=== PATIENT | male | born 1990 | race Caucasian/White ===

== ENCOUNTER 2018-11-08 21:35 | Emergency (ER) | payer SELFPAY ==
[2018-11-08] MEDS ORDERED: Nitroglycerin 0.4 MG Tab.SL SL PRN (22:08)
[2018-11-08] MEDS ORDERED: Sodium Chloride 0.9% 10 ML Syringe FLUSH PRN (22:08)
[2018-11-08] MEDS ORDERED: Sodium Chloride 0.9% 1,000 ML IV ONE (22:08)
[2018-11-08] MEDS ORDERED: Aspirin 81 MG Tab.Chew PO ONE (22:08)
[2018-11-08] MEDS ORDERED: Sodium Chloride 0.9% 2.5 ML Syringe FLUSH PRN (22:08)
--- NOTE | 2018-11-08 22:09 | EDM.PDOC ---
ED HPI GENERAL MEDICAL PROBLEM - General Chief Complaint: Cardiovascular Problem Stated Complaint: DIZZY Time Seen by Provider: 11/08/18 21:59 - History of Present Illness INITIAL COMMENTS - FREE TEXT/NARRATIVE: HISTORY AND PHYSICAL: History of present illness: The patient is a 28-year-old male with no stated cardiac or pulmonary history and no significant family history who presents with left-sided chest pain that does not radiate and he currently rates it a 5/10. He said he slept fine last evening and had a normal day yesterday and woke up and was doing his normal activities when it started about 9:00 this morning. He said initially he was lightheaded like he might pass out but he did not pass out and then started having the chest discomfort which has waxed and waned in intensity all day. He has not had shortness of breath fevers or chills no nausea or vomiting and no back pain or leg pain/swelling. He did not take any medications today for the pain. He says that the lightheadedness has waxed and waned as well but he does not have any focal weakness and he absolutely did not pass out and has no head neck or back pain. The patient has no significant family history and his social history is positive for a smoker of one pack a day as well as social drinking on the weekends but no drug use. He says that he has had an EKG in the past but was told that it was normal. He has had no diaphoresis with this discomfort and again he says that the symptoms are waxing and waning all day but they have never been gone completely. Patient does admit he drinks a lot of caffeinated products Review of systems: As per history of present illness and below otherwise all systems reviewed and negative. Past medical history: As per history of present illness and as reviewed below otherwise noncontributory. Surgical history: As per history of present illness and as reviewed below otherwise noncontributory. Social history: No reported history of drug or alcohol abuse. Family history: As per history of present illness and as reviewed below otherwise noncontributory. Physical exam: General: Well-developed well-nourished man who is nontoxic and vital signs were noted by me. He is speaking clearly and easily in the ED without any distress or breathlessness HEENT: Atraumatic, normocephalic, pupils reactive, negative for conjunctival pallor or scleral icterus, mucous membranes moist, throat clear, neck supple, nontender, trachea midline. Lungs: Clear to auscultation, breath sounds equal bilaterally, chest nontender. No wheezing stridor or work of breathing Heart: S1S2, regular rate and rhythm no overt murmurs, negative for clicks, rubs , or JVD. Abdomen: Soft, nondistended, nontender. Negative for masses or hepatosplenomegaly. NABS Pelvis: Stable nontender. Genitourinary: Deferred. Rectal: Deferred. Extremities: Atraumatic, negative for cords or calf pain. Neurovascular unremarkable. No pedal edema or leg asymmetry Neuro: Awake, alert, oriented. Cranial nerves II through XII unremarkable. Cerebellum unremarkable. Motor and sensory unremarkable throughout. Exam nonfocal. Skin: No diaphoresis normal turgor no evidence of any overt rashes or lesions Diagnostics: EKG 2, chest x-ray, CBC CMP INR troponin Therapeutics: IV O2 monitor aspirin subungual nitroglycerin IV fluids Nitropaste 2206: After I was given the EKG I immediately contacted Dr. Koch, the on- call server security administrator at [facility] in [place], due to the abnormality of it including a bundle branch block. In light of the patient's age his presenting symptoms and chest pain and the abnormality I wanted him to look at it to help determine if this needed to come emergently to [facility]. The patient does not have records here 2214: Dr Koch as reviewed the EKG and feels it is a right bundle/ bifascicular block and he does not feel like he can read more into it than that and does not feel that it needs to be called as an acute STEMI. He said that it is difficult to make sure much interpretation of it with these blocks but he does not again feel that it needs to be emergently sent to their institution as a STEMI. He said that the patient should be ruled out with enzymes and if he continues to have pain or positive troponin that we can send him to [place]. 2221: Nursing went in to give the sublingual nitroglycerin the patient is now saying that he has having no chest pain or pressure and that it does come and go in intensity. When I saw him it was a 5/10 and he says that it is absolutely not present at all now. We will place Nitropaste 2330: All testing results were discussed with the patient and he was advised for observation admission which he is refusing. He is aware of my concerns and accepts them. We will remove the Nitropaste and I will put his name on our cardiology expedited follow-up list for his abnormal EKG. He says he'll return if anything changes but again he is aware of my concerns and the need to completely evaluate this here in the hospital Impression: Chest pain with lightheadedness; abnormal EKG with bundle branch block Definitive disposition and diagnosis as appropriate pending reevaluation and review of above. Left Chest Pain Score (Numeric/FACES): 5 - Related Data Allergies Allergy/AdvReac Type Severity Reaction Status Date / Time No Known Allergies Allergy Verified 11/08/18 22:06 Home Meds: Home Meds Penicillin V Potassium 250 mg PO ASDIRECTED 11/08/18 [History] ED ROS GENERAL - Review of Systems Review Of Systems: ROS reveals no pertinent complaints other than HPI. ED EXAM, GENERAL - Physical Exam Exam: See Below (See dictation) Course - Vital Signs Last Recorded V/S: Last Vital Signs Temp 37.1 C 11/08/18 22:18 Pulse 71 11/08/18 22:18 Resp 12 11/08/18 22:18 BP 117/83 11/08/18 22:18 Pulse Ox 97 11/08/18 22:18 - Orders/Labs/Meds Orders: Active Orders 24 hr Category Date Time Status Cardiac Monitoring [RC] . DIRECTED Care 11/08/18 22:06 Active EKG Documentation Completion [RC] STAT Care 11/08/18 22:06 Active Oxygen Therapy, ED [RC] ASDIRECTED Care 11/08/18 22:06 Active Pulse Oximetry [RC] ASDIRECTED Care 11/08/18 22:06 Active Nitroglycerin [Nitrostat] Med 11/08/18 22:08 Active 0.4 mg SL Q5M PRN Sodium Chloride 0.9% [Saline Flush] Med 11/08/18 22:08 Active 10 ml FLUSH ASDIRECTED PRN Sodium Chloride 0.9% [Saline Flush] Med 11/08/18 22:08 Active 2.5 ml FLUSH ASDIRECTED PRN Saline Lock Insert [OM.PC] Stat Oth 11/08/18 22:06 Ordered Medication Orders Nitroglycerin (Nitrostat) 0.4 mg SL Q5M PRN PRN Reason: Chest Pain Sodium Chloride (Saline Flush) 10 ml FLUSH ASDIRECTED PRN PRN Reason: Keep Vein Open Last Admin: 11/08/18 22:23 Dose: 10 ml Sodium Chloride (Saline Flush) 2.5 ml FLUSH ASDIRECTED PRN PRN Reason: Keep Vein Open Last Admin: 11/08/18 22:23 Dose: 2.5 ml Labs: Laboratory Tests 11/08/18 11/08/18 11/08/18 Range/Units 22:10 22:10 22:10 WBC 5.44 (4.0-11.0) K/uL RBC 5.24 (4.50-5.90) M/uL Hgb 16.4 (13.0-17.0) g/dL Hct 46.2 (38.0-50.0) % MCV 88.2 (80.0-98.0) fL MCH 31.3 (27.0-32.0) pg MCHC 35.5 (31.0-37.0) g/dL RDW Std Deviation 43.3 (28.0-62.0) fl RDW Coeff of Leticia 14 (11.0-15.0) % Plt Count 241 (150-400) K/uL MPV 9.70 (7.40-12.00) fL Neut % (Auto) 53.6 (48.0-80.0) % Lymph % (Auto) 35.7 (16.0-40.0) % Osborne % (Auto) 9.2 (0.0-15.0) % Eos % (Auto) 1.3 (0.0-7.0) % Baso % (Auto) 0.2 (0.0-1.5) % Neut # (Auto) 2.9 (1.4-5.7) K/uL Lymph # (Auto) 1.9 (0.6-2.4) K/uL Osborne # (Auto) 0.5 (0.0-0.8) K/uL Eos # (Auto) 0.1 (0.0-0.7) K/uL Baso # (Auto) 0.0 (0.0-0.1) K/uL Nucleated RBC % 0.0 /100WBC Nucleated RBCs # 0 K/uL INR 0.98 Sodium 137 (136-148) mmol/L Potassium 3.3 L (3.5-5.1) mmol/L Chloride 99 (98-107) mmol/L Carbon Dioxide 28.0 (21.0-32.0) mmol/L BUN 12 (7.0-18.0) mg/dL Creatinine 1.0 (0.8-1.3) mg/dL Est Cr Clr Drug Dosing 120.71 mL/min Estimated GFR (MDRD) > 60.0 ml/min Glucose 137 H (74-106) mg/dL Calcium 8.6 (8.5-10.1) mg/dL Total Bilirubin 0.7 (0.2-1.0) mg/dL AST 25 (15-37) IU/L ALT 70 H (14-63) IU/L Alkaline Phosphatase 58 (46-116) U/L Troponin I < 0.050 (0.000-0.056) ng/mL Total Protein 7.3 (6.4-8.2) g/dL Albumin 4.2 (3.4-5.0) g/dL Globulin 3.1 (2.6-4.0) g/dL Albumin/Globulin Ratio 1.4 (0.9-1.6) Meds: Medications Generic Name Dose Route Start Last Admin Trade Name Freq PRN Reason Stop Dose Admin Nitroglycerin 0.4 mg 11/08/18 22:08 Nitrostat SL Q5M PRN Chest Pain Sodium Chloride 10 ml 11/08/18 22:08 11/08/18 22:23 Saline Flush FLUSH 10 ml ASDIRECTED PRN Administration Keep Vein Open Sodium Chloride 2.5 ml 11/08/18 22:08 11/08/18 22:23 Saline Flush FLUSH 2.5 ml ASDIRECTED PRN Administration Keep Vein Open Discontinued Medications Generic Name Dose Route Start Last Admin Trade Name Freq PRN Reason Stop Dose Admin Aspirin 324 mg 11/08/18 22:08 11/08/18 22:22 Aspirin PO 11/08/18 22:09 324 mg ONETIME ONE Administration Sodium Chloride 1,000 mls @ 999 mls/hr 11/08/18 22:08 11/08/18 22:21 Normal Saline IV 11/08/18 23:08 999 mls/hr STAT ONE Administration Nitroglycerin 0.5 gm 11/08/18 22:22 11/08/18 22:25 Nitro-Bid 2% TOP 11/08/18 22:23 0.5 gm ONETIME ONE Administration Departure - Departure Time of Disposition: 23:34 Disposition: Home, Self-Care 01 Reason for Transfer *Q: Primary PCI Indicated Condition: Good Clinical Impression: Abnormal EKG Chest pain Qualifiers: Chest pain type: unspecified Qualified Code(s): R07.9 - Chest pain, unspecified Referrals: PCP,None [Primary Care Provider] - Forms: ED Department Discharge Additional Instructions: The following information is given to patients seen in the emergency department who are being discharged to home. This information is to outline your options for follow-up care. We provide all patients seen in our emergency department with a follow-up referral. The need for follow-up, as well as the timing and circumstances, are variable depending upon the specifics of your emergency department visit. If you don't have a primary care physician on staff, we will provide you with a referral. We always advise you to contact your personal physician following an emergency department visit to inform them of the circumstance of the visit and for follow-up with them and/or the need for any referrals to a consulting specialist. The emergency department will also refer you to a specialist when appropriate. This referral assures that you have the opportunity for followup care with a specialist. All of these measure are taken in an effort to provide you with optimal care, which includes your followup. Under all circumstances we always encourage you to contact your private physician who remains a resource for coordinating your care. When calling for followup care, please make the office aware that this follow-up is from your recent emergency room visit. If for any reason you are refused follow-up, please contact the [facility] emergency department at and ask to speak to the emergency department charge nurse. [facility] Primary care- Internal Medicine and Family [address] [address] Please take one 325 milligram aspirin daily until you're followed up in the clinic and call and schedule an appointment in our clinic for follow-up care as we discussed for your abnormal EKG in tonight symptoms. Please note that he can return at any time for reevaluation for admission as you have denied admission today. Please reduce and/or eliminate tobacco and alcohol use and push hydration. Return to ER as needed and as discussed - My Orders Last 24 Hours: My Active Orders 11/08/18 22:06 Cardiac Monitoring [RC] . DIRECTED EKG Documentation Completion [RC] STAT Oxygen Therapy, ED [RC] ASDIRECTED Pulse Oximetry [RC] ASDIRECTED Saline Lock Insert [OM.PC] Stat 11/08/18 22:08 Nitroglycerin [Nitrostat] 0.4 mg SL Q5M PRN Sodium Chloride 0.9% [Saline Flush] 10 ml FLUSH ASDIRECTED PRN Sodium Chloride 0.9% [Saline Flush] 2.5 ml FLUSH ASDIRECTED PRN - Assessment/Plan Last 24 Hours: My Active Orders 11/08/18 22:06 Cardiac Monitoring [RC] . DIRECTED EKG Documentation Completion [RC] STAT Oxygen Therapy, ED [RC] ASDIRECTED Pulse Oximetry [RC] ASDIRECTED Saline Lock Insert [OM.PC] Stat 11/08/18 22:08 Nitroglycerin [Nitrostat] 0.4 mg SL Q5M PRN Sodium Chloride 0.9% [Saline Flush] 10 ml FLUSH ASDIRECTED PRN Sodium Chloride 0.9% [Saline Flush] 2.5 ml FLUSH ASDIRECTED PRN
[2018-11-08] MEDS ORDERED: Nitroglycerin 2% Oint 1 GM UD Packet TOP ONE (22:22)
--- NOTE | 2018-11-08 22:48 | CR ---
Indication: Dizziness Technique: Chest 1 view Comparison: None Findings/Impression: Cardiovascular and mediastinum: Heart size and vasculature are normal in caliber and appearance. Mediastinum is within normal limits. Lungs and pleural space: Lungs are clear. No sign of infiltrate or mass. No sign of pleural effusion. No pneumothorax. Bones and soft tissues: No significant findings. Dictated by Katie Love MD @ Nov 08 2018 10:46PM Signed by Dr. Katie Love @ Nov 08 2018 10:46PM
[2018-11-08 22:55] LABS: CHLORIDE,CL 99 mmol/L (98-107); SODIUM,NA 137 mmol/L (136-148)
== END 2018-11-08 23:50 | disposition home or self-care (01) ==
LOC: MW.ED 21:35
DX: I45.4 Nonspecific intraventricular block (principal)
CPT/HCPCS: 36415; 71045; 80053; 84484; 85025; 85610; 93005; 96360; 99285; A9270; J7040